=== PATIENT | female | born 1975 | race Caucasian/White ===

== ENCOUNTER 2021-11-14 20:44 | Emergency (ER) | payer SELFPAY ==
[~2021-11-14] VITALS: Ht 165.1 cm; Wt 59.0 kg
[2021-11-14] MEDS ORDERED: KETOROLAC TROMETHAMINE 30 MG INJ IM ONE (21:00)
[2021-11-14] MEDS ORDERED: TDAP DIPH,PERTUSS,TET VAC/PF 0.5 ML DISP.SYRIN IM ONE ×2 (21:00→21:07)
[2021-11-14] MEDS ORDERED: KETOROLAC TROMETHAMINE 30 MG INJ ONE (21:07)
--- NOTE | 2021-11-14 21:11 | NUR ---
Patient walked into ER c/o left hand and left thigh laceration from a dog bite
--- NOTE | 2021-11-14 21:15 | NUR ---
Dr Cintron in room for BRIEN
[2021-11-14] MEDS ORDERED: AMOX-430 PO (21:39)
[2021-11-14] MEDS ORDERED: NAPR-1164 PO (21:39)
--- NOTE | 2021-11-14 22:15 | NUR ---
Patient discharged to home in stable condition. Written and verbal after care instructions given. Patient verbalizes understanding of instructions. Stressed follow up or return to ER for worsening s/s. Patient is A/Ox4, no SOB, no distress noted.
[2021-11-14 22:17] VITALS: BP 125/67
== END 2021-11-14 22:15 | disposition home or self-care (01) ==
LOC: ER 20:46
DX: S71.132A Puncture wound without foreign body, left thigh, initial encounter (principal); S61.432A Puncture wound without foreign body of left hand, initial encounter; W54.0XXA Bitten by dog, initial encounter; Y93.89 Activity, other specified; Y92.89 Other specified places as the place of occurrence of the external cause
CPT/HCPCS: 73130; 90471; 90715; 96372; 99283; J1885; A4663